=== PATIENT | male | born 1965 | race Two or more races ===

== ENCOUNTER 2022-08-06 22:35 | Emergency (ER) | payer OTHER ==
[~2022-08-06] VITALS: Ht 185.4 cm; Wt 111.1 kg
[~2022-08-06 22:35] MED LIST: PROTONIX40 MG PO
[2022-08-07] MEDS ORDERED: MECLIZINE HCL25 MG PO (08:08)
[2022-08-07] MEDS ORDERED: FLONASE16 GM IH (08:08)
[2022-08-07] MEDS ORDERED: PHENAGIL TABLE1 EACH PO (08:08)
== END 2022-08-07 08:15 ==
LOC: ER 22:35
DX: J32.9 Chronic sinusitis, unspecified (principal); R42 Dizziness and giddiness